=== PATIENT | male | born 1985 | race Caucasian/White ===

== ENCOUNTER 2019-08-10 10:37 | Emergency (ER) | payer OTHER ==
[~2019-08-10] VITALS: Ht 180.3 cm; Wt 102.1 kg
== END 2019-08-10 13:16 | disposition home or self-care (01) ==
LOC: ER 10:37
DX: J06.9 Acute upper respiratory infection, unspecified (principal); Z03.818 Encounter for observation for suspected exposure to other biological agents ruled out